=== PATIENT | female | born 1990 | race Caucasian/White ===

== ENCOUNTER 2017-03-15 06:39 | Emergency (ER) | payer BC ==
[~2017-03-15] VITALS: Ht 157.5 cm; Wt 78.5 kg
[2017-03-15 06:41] VITALS: BP 125/83
--- NOTE | 2017-03-15 06:47 | NUR ---
AMULATED TO ER BED 5
--- NOTE | 2017-03-15 06:58 | NUR ---
PATIENT PRESENTS TO ED WITH C/O LOWER RT BACK PAIN . PT DENIES N/V/D; SKIN IS PINK/WARM/DRY; AAOX4 WITH EVEN AND STEADY GAIT; LUNGS CLEAR BL; HR EVEN AND REGULAR; PT DENIES ANY FEVER, CP, SOB, OR COUGH AT THIS TIME; PATIENT STATES PAIN OF 7/10 AT THIS TIME; VSS; PATIENT POSITIONED FOR COMFORT; HOB ELEVATED; BEDRAILS UP X2; BED DOWN. ER MD MADE AWARE OF PT STATUS.
--- NOTE | 2017-03-15 07:18 | NUR ---
DR KEVIN EVALUATING AAO PT AT BEDSIDE
[2017-03-15] MEDS ORDERED: KETOROLAC 60 MG/2 ML VIAL IM ONE (07:25)
--- NOTE | 2017-03-15 07:45 | NUR ---
PT TAKEN OFF THE UNIT FOR XRAY VIA WHEEL CHAIR
[2017-03-15 08:43] VITALS: BP 118/72
--- NOTE | 2017-03-15 08:43 | NUR ---
Patient discharged with v/s stable. Written and verbal after care instructions given and explained. Patient alert, oriented and verbalized understanding of instructions. Ambulatory with steady gait. All questions addressed prior to discharge. ID band removed. Patient advised to follow up with PMD. Rx of MOTRIN, TRAMADOL given. Patient educated on indication of medication including possible reaction and side effects. Opportunity to ask questions provided and answered.
== END 2017-03-15 08:43 | disposition home or self-care (01) ==
LOC: MED 06:39
DX: S39.012A Strain of muscle, fascia and tendon of lower back, initial encounter (principal); R03.0 Elevated blood-pressure reading, without diagnosis of hypertension; X58.XXXA Exposure to other specified factors, initial encounter; Y93.89 Activity, other specified; Y92.89 Other specified places as the place of occurrence of the external cause; Y99.8 Other external cause status
CPT/HCPCS: 72100; 81002; 81025; 96372; 99284; J1885

== ENCOUNTER 2017-10-22 18:01 | Emergency (ER) | payer SELFPAY ==
[~2017-10-22] VITALS: Ht 157.5 cm; Wt 82.6 kg
[2017-10-22 18:12] VITALS: BP 111/67
--- NOTE | 2017-10-22 18:17 | NUR ---
Pt directed to eye wash station and assisted by EMT.
--- NOTE | 2017-10-22 18:20 | NUR ---
27/F BIB c/o right eye pain & REDNESS x today @ 1600. Patient states she was at work and might have gotten some debris in her right eye. AAOX4 WITH EVEN AND STEADY GAIT; LUNGS CLEAR BL. PATIENT STATES PAIN OF 8/10 AT THIS TIME. PATIENT POSITIONED FOR COMFORT; HOB ELEVATED; BEDRAILS UP X2; BED DOWN. ER MD MADE AWARE OF PT STATUS.
--- NOTE | 2017-10-22 18:20 | NUR ---
Note undone in EDM - 10/22/17 at 1849 by MED1 BIB c/o right eye pain & REDNESS x today @ 1600. Patient states she was at work and might have gotten some debris in her right eye. AAOX4 WITH EVEN AND STEADY GAIT; LUNGS CLEAR BL. PATIENT STATES PAIN OF 0/10 AT THIS TIME. PATIENT POSITIONED FOR COMFORT; HOB ELEVATED; BEDRAILS UP X2; BED DOWN. ER MADE AWARE OF PT STATUS.
[2017-10-22] MEDS ORDERED: FLUORESCEIN OPTH STRIP 0.6 MG OP ONE (19:10)
--- NOTE | 2017-10-22 19:15 | NUR ---
Pt report given to XAVIER MAY. Transfer of care at this time.
--- NOTE | 2017-10-22 19:20 | NUR ---
REPORT FROM YADIRA CONDON
[2017-10-22] MEDS ORDERED: TETRACAINE HCL/PF 0.5% OPTH 4 ML BTL ONE (19:26)
--- NOTE | 2017-10-22 19:34 | NUR ---
MEDS AT BEDSIDE.
[2017-10-22] MEDS ORDERED: TETRACAINE HCL/PF 0.5% OPTH 4 ML BTL OP ONE (20:10)
[2017-10-22 20:24] VITALS: BP 129/83
== END 2017-10-22 20:24 | disposition home or self-care (01) ==
LOC: MED 18:01
DX: H57.11 Ocular pain, right eye (principal)
CPT/HCPCS: 99283